=== PATIENT | male | born 1965 | race Two or more races ===

== ENCOUNTER 2017-05-14 17:07 | Emergency (ER) | payer OTHER ==
[~2017-05-14] VITALS: Ht 170.2 cm; Wt 73.5 kg
[2017-05-14 17:24] VITALS: BP 111/73
[2017-05-14] MEDS ORDERED: PROMETHAZINE-D118 ML ORAL (18:07)
[2017-05-14] MEDS ORDERED: IBUPROFEN600 MG ORAL (18:07)
[2017-05-14] MEDS ORDERED: AMOXICILLIN500 MG ORAL (18:07)
[2017-05-14 18:15] VITALS: BP 111/70
--- NOTE | 2017-05-14 21:00 | Emergency Room Report ---
History of Present Illness General Chief Complaint: General Complaint Source: Patient Present Illness HPI The patient is a 51-year-old male who denies medical history presenting for sore throat, cough, and fever for the past 3 days. Temperature has been as high as 103.9F. He then took Tylenol and states the temperature reduced. He denies any known sick contacts recent travel. Pain is primarily at the throat described as 8/10 dull ache. Worse with cough. He denies any other symptoms Allergies: Coded Allergies: No Known Allergies (Unverified , 05/14/17) Patient History Past Medical History: see triage record Pertinent Family History: none Reviewed Nursing Documentation: PMH: Agreed, PSxH: Agreed Review of Systems All Other Systems: negative except mentioned in HPI Physical Exam Vital Signs Date Time Temp Pulse Resp B/P (MAP) Pulse Ox O2 Delivery O2 Flow Rate FiO2 05/14/17 17:24 100.2 111 20 111/73 94 05/14/17 18:15 Room Air Sp02 EP Interpretation: reviewed, normal General Appearance: no apparent distress, alert, GCS 15, non-toxic Head: normocephalic, atraumatic Eyes: bilateral eye normal inspection, bilateral eye PERRL ENT: hearing grossly normal, no angioedema, normal voice, uvula midline, tonsillar swelling, pharyngeal erythema, tonsillar exudate Neck: full range of motion, supple/symm/no masses Respiratory: chest non-tender, lungs clear, normal breath sounds, speaking full sentences Cardiovascular #1: regular rate, rhythm, no edema Musculoskeletal: back normal, gait/station normal, normal range of motion, non- tender Neurologic: alert, oriented x3, responsive, motor strength/tone normal, sensory intact, speech normal Psychiatric: judgement/insight normal, memory normal, mood/affect normal, no suicidal/homicidal ideation Skin: normal color, no rash, warm/dry, well hydrated Lymphatic: adenopathy Medical Decision Making PA Attestation Dr. Sierra is my supervising physician. Patient management was discussed with my supervising physician Diagnostic Impression: Primary Impression: Pharyngitis, acute Qualified Codes: J02.9 - Acute pharyngitis, unspecified ER Course The patient is a 51-year-old male who denies medical history presenting for sore throat, cough, and fever for the past 3 days. Differential diagnosis include but not limited to pharyngitis, sinusitis, AOM, bronchitis, PNA Physical exam: Vitals within normal limits. Afebrile. No apparent distress HEENT exam: There is bilateral tonsillar edema, erythema, and exudate. Uvula midline. Moist mucous membranes. There is bilateral cervical lymphadenopathy. Lungs are clear to auscultation bilaterally Skin is warm and dry. No rash The patient will be discharged home with a prescription for amoxicillin and is given ER precautions. Patient will followup with primary care Last Vital Signs Date Time Temp Pulse Resp B/P (MAP) Pulse Ox O2 Delivery O2 Flow Rate FiO2 05/14/17 18:15 107 18 111/70 96 Room Air 05/14/17 17:24 100.2 Status: improved Disposition: HOME, SELF-CARE Condition: Improved Scripts D-Methorphan Hb/Prometh Hcl* (PROMETHAZINE-DM SYRUP*) 118 Ml Syrup 5 ML ORAL Q6H Y for For Cough, #118 ML 0 Refills Prov: KAREN LUNA.A. 05/14/17 Amoxicillin* (AMOXIL*) 500 Mg Capsule 500 MG ORAL Q12HR, #20 CAP Prov: KAREN LUNA P.A. 05/14/17 Ibuprofen* (MOTRIN*) 600 Mg Tablet 600 MG ORAL Q8H Y for For Pain, #30 TAB 0 Refills Prov: KAREN LUNA P.A. 05/14/17 Patient Instructions: Pharyngitis Additional Instructions: I discussed my findings with the patient. All questions and concerns have been answered. Treatment and medication compliance have been addressed. I advised the patient that they need to follow up with PMD in 3-5 days. Return to ED if pain remains or worsens, cough worsens or remains, you notice blood in your sputum, you notice wheezing, you experience a fever, or if needed for any reason. Patient verbalized understanding of discharge instructions. KAREN LUNA May 14, 2017 21:00
== END 2017-05-14 18:15 | disposition home or self-care (01) ==
LOC: EMR 17:35
DX: J02.9 Acute pharyngitis, unspecified (principal)
CPT/HCPCS: 99283